=== PATIENT | female | born 2000 | race Caucasian/White ===

== ENCOUNTER 2023-09-20 01:29 | Emergency (ER) | payer OTHER, SELFPAY ==
[2023-09-20 01:32] VITALS: BP 128/94
--- NOTE | 2023-09-20 01:56 | ED.GENMED ---
History of Present Illness
General
Chief Complaint: Flank Pain
Time Seen by Provider: 09/20/23 01:37
History of Present Illness
History of Present Illness:
23-year-old female with history of kidney stones presenting to the emergency department for left flank pain. Patient reports symptoms started 2 days ago, with pain in left flank, radiating to the left lower quadrant of the abdomen. Reports that
symptoms feel consistent with prior episodes of kidney stones. Notes urinary frequency without dysuria. Denies fever, chest pain, difficulty breathing. Reports that in the past she has spontaneously passed her kidney stones. Last menstrual
period was a week ago. She had Tylenol with codeine about an hour and a half prior to arrival. Denies additional acute medical complaints.
Past History
Past History
ED Past Medical History: None
ED Past Surgical History: None
Social History
Tobacco: Non-smoker
Living: with family
Phy Exam
Physical Exam
Physical Exam:
General: Well-appearing, no clinical signs of dehydration, nontoxic and in no acute distress
HEENT: protecting airway
Neck: appears supple
CV: Normal heart rate, regular rhythm, no evidence of cyanosis
Resp: No accessory muscle use, no increased work of breathing, lungs clear to auscultation bilaterally
Abd: Soft and non-distended, mild tenderness to the left lower quadrant, mild left CVA tenderness
Extremities: No deformities, no swelling, no erythema, pulses and sensation intact
Neuro: alert, no focal neurologic deficit
: deferred
Rectal: deferred
Psych: Normal affect
Skin: Intact
Course
Orders/Labs/Results
Orders:
Orders
09/20/23 01:44
Complete Blood Count/With Diff Urgent
Comprehensive Metabolic Panel Urgent
HCG, Serum Qualitative Screen Urgent
Urinalysis Reflex To Culture Urgent
Date Specimen was Collected: 09/20/23
Time Specimen was Collected: 01:42
Urine Microscopic Reflex Cult Urgent
Urine Culture Urgent
NICK Source: U
Specimen Description:
Date Specimen was Collected: 09/20/23
Time Specimen was Collected: 01:42
09/20/23 01:46
Test Result ONCE
09/20/23 01:47
0.9% Sodium Chloride 1000 ml [Nss] 1,000 ml IV BOLUS
Ketorolac [Toradol] 15 mg IV NOW STA
Ondansetron Injectable [Zofran] 4 mg IV NOW STA
09/20/23 01:48
CT Abd/pel Without Iv Or Oral Urgent
Comment:
Reason For Exam: L-flank pain, suspect stone, hx of stones
Abnormal Lab Results
09/20/23
01:44
RBC 3.79 L 10^6/uL
(4.20-5.40)
Hgb 11.4 L g/dL
(12.0-16.0)
Hct 33.2 L %
(37.0-47.0)
Ur Occult Blood Reflex 4+ A
(Negative)
Urine RBC 80-90 A /HPF
(0-2)
Urine Bacteria (Reflex) Moderate A
(Negative)
09/20/23 01:44
09/20/23 01:44
Vital Signs
Initial and Last Documented VS:
Initial Vital Signs
Temp Pulse Resp BP Pulse Ox
98.2 F 79 20 128/94 99
09/20/23 01:32 09/20/23 01:32 09/20/23 01:32 09/20/23 01:32 09/20/23 01:32
Last Documented Vital Signs
Temp Pulse Resp BP Pulse Ox
98.2 F 64 14 115/88 99
09/20/23 01:32 09/20/23 02:08 09/20/23 02:08 09/20/23 02:08 09/20/23 02:08
MDM/Problems Addressed
MDM/Problems Addressed:
23-year-old female with history of kidney stones presenting for left flank and left abdominal pain. Vital signs within normal limits.
On exam, patient well-appearing, nontoxic. Mild left CVA tenderness and left lower quadrant tenderness. Patient reports symptoms feel consistent with prior episodes of kidney stones. Patient also notes she has had ovarian cysts in the past as
well, lower suspicion for torsion at this time. Reports last menstrual period was a week ago. Will check status, urinalysis, CT abdomen and pelvis. Will treat with Toradol for pain and IV fluids
03:30 -patient's labs are unremarkable, no leukocytosis, normal renal function. No signs of urinary tract infection. CT shows 3 mm stone with mild left hydro. No concern for infected stone. On reassessment, and reporting symptom improvement.
Feel stable for discharge with outpatient supportive therapy. Provide urology follow-up. Will prescribe Flomax, which helped patient in the past. Return precaution discussed and patient verbalized understanding
*Critical Care Note
Total Time (30-74mins, 75-104mins- exclusive of procedures): Not Applicable
ED Attending Note
-
Portions of this chart may have been created with voice recognition software.� Occasional wrong word or��sound alike� substitutions may have occurred due to the inherent limitations of voice recognition software.
Discharge Plan
Departure
Instructions: Kidney Stones (DC), Flank Pain (DC)
Referrals:
Ibrahima Crane MD [Active] - (kidney stone)
Activity Restrictions/Additional Instructions:
You were seen in the emergency department for flank and abdominal pain
You were found to have a kidney stone
Please follow-up closely with your primary care physician and the urologist.
Return to the emergency department for any worsening of your symptoms, or any development of chest pain, difficulty breathing, abdominal pain with persistent vomiting and inability to tolerate food or liquid by mouth (concern for dehydration),
weakness, headache or confusion, fever greater than 100.4, or any additional symptoms that are concerning to you.
Thank you for choosing [facility].
Interventions
Interventions:
*Risk Screen - Suicide Last Done: 09/20/23 01:32
*General Assessment Last Done: 09/20/23 01:32
*Neglect/Abuse Screening Last Done: 09/20/23 01:32
ED- Fall Risk Assessment Last Done: 09/20/23 01:32
*ED COVID-19 Vaccine History Last Done: 09/20/23 01:32
YE-Zjohqd-Vjcfbsexuv Assessment Last Done: 09/20/23 01:55
ED-Female Genitourinary Assessment Last Done: 09/20/23 01:55
Discharge Date and Time
Print Language: ESTONIAN
[2023-09-20] MEDS: NSS 1000 IV (02:02)
[2023-09-20] MEDS: TORADOL 15 MG IV (02:02)
[2023-09-20] MEDS: ZOFRAN 4 MG IV (02:03)
[2023-09-20 02:06] VITALS: BMI 30.2
[2023-09-20 02:08] VITALS: BP 115/88
[2023-09-20 02:22] LABS: % Basophils 0.5 % (0-2); % Eosinophils 0.9 % (0-6); % Immature Granulocytes 0.1 % (0-0.5); % Monocytes 6.5 % (1.7-9.3); Absolute Eosinophils 0.1 10^3/uL (0-0.7); Absolute Monocytes 0.5 10^3/uL (0.1-0.6); Absolute Neutrophils 4.2 10^3/uL (1.4-6.5); Hematocrit 33.2 % (37.0-47.0); Hemoglobin 11.4 g/dL (12.0-16.0); Mean Corp Hgb Conc. 34.3 g/dL (33.0-37.0); Mean Corpuscular Hgb 30.1 pg (27.0-31.0); Mean Corpuscular Volume 87.6 fL (81.0-99.0); Mean Platelet Volume 9.3 fL (7.4-10.4); Nucleated Red Blood Cells % 0 %; Platelet Count 279 10^3/uL (130-400); Red Blood Cell Count 3.79 10^6/uL (4.20-5.40); Red Cell Dist. Width 12.3 % (11.5-14.5); White Blood Cell Count 7.8 10^3/uL (4.8-10.8)
[2023-09-20 02:28] LABS: Urine Albumin Trace (Neg - Trace); Urine Bilirubin Negative (Negative); Urine Character Slightly Cloudy (Clear); Urine Color Yellow; Urine Glucose Negative (Negative); Urine Ketone Negative (Negative); Urine Leukocyte Negative (Negative); Urine Nitrite Negative (Negative); Urine Occult Blood 4+ (Negative); Urine Specific Gravity 1.025 (<1.030); Urine Urobilinogen Negative (Neg - 1+)
[2023-09-20 02:32] LABS: HCG, Serum Qualitative Screen Negative
[2023-09-20 02:36] LABS: Urine Bacteria Moderate (Negative); Urine Red Blood Cell 80-90 /HPF (0-2); Urine White Cell 0-2 /HPF (0-5)
[2023-09-20 02:39] LABS: ALT (SGPT) 17 U/L (0-35); AST (SGOT) 24 U/L (14-36); Albumin 4.7 g/dl (3.5-5.0); Alkaline Phosphatase 123 U/L (38-126); Blood Urea Nitrogen 9 mg/dl (7-17); Calcium 10.2 mg/dl (8.4-10.2); Carbon Dioxide 23 mmol/L (22-30); Chloride 105 mmol/L (98-107); Estimated Creatinine Clearance > 125 ml/min; Glucose 89 mg/dl (70-99); Potassium 3.7 mmol/L (3.5-5.1); Sodium 140 mmol/L (135-145); Total Bilirubin 0.3 mg/dl (0.2-1.3); Total Protein 7.2 g/dl (6.3-8.2); eGFR > 60.00
[2023-09-20 03:50] VITALS: BP 115/88
== END 2023-09-20 03:50 | disposition home or self-care (01) ==
LOC: EMR 01:29
PROVIDERS: EMERGENCY PHYSICIAN Student in an Organized Health Care Education/Training Program
DX: N20.0 Calculus of kidney (principal); Z87.442 Personal history of urinary calculi
CPT/HCPCS: 99284; 74176; 80053; 81003; 81015; 84703; 85025; 87086